=== PATIENT | female | born 1940 | race Caucasian/White ===

== ENCOUNTER → 2017-04-07 | Outpatient (CLI) | payer OTHER ==
[~2017-04-07] MED LIST: LPTUNK; LRT5 PO; METH4PAK4 PO; VALA1TAB PO
--- NOTE | 2017-04-07 12:49 | MAMMOGRAPHY REPORT ---
BILATERAL DIGITAL SCREENING MAMMOGRAM WITH CAD: 04/07/2017 CLINICAL HISTORY: Routine screening. Patient has no complaints. TECHNIQUE: Bilateral CC and MLO views were obtained. Current study was also evaluated with a Comput er Aided Detection (CAD) system. COMPARISON: Comparison is made to exams dated: 04/01/2016 mammogram, 03/29/2015 mammogram, 03/28/2014 m ammogram, 03/24/2013 mammogram, 03/23/2012 mammogram, and 03/20/2011 mammogram - [facility]. BREAST COMPOSITION: The tissue of both breasts is heterogeneously dense, which may obscure small ma sses. FINDINGS: There are stable asymmetries in the left breast. Scattered punctate microcalcifications. No developing mass, architectural distortion or cluster of suspicious microcalcifications is seen i n either breast. IMPRESSION: ACR BI-RADS CATEGORY 2: BENIGN There is no mammographic evidence of malignancy. A 1 year screening mammogram is recommended. The p atient will receive written notification of the results. Approximately 10% of breast cancers are not detected with mammography. A negative mammographic repor t should not delay biopsy if a clinically suggestive mass is present. Luiza Bass M.D. ay/:04/07/2017 09:01:08 Outside Machinist Apprentice: Eneida HAMILTON(R)(M), [facility] letter sent: Normal 1/2 BI-RADS Code: ACR BI-RADS Category 2: Benign
== END | disposition home or self-care (01) ==
LOC: C.MAMM 08:33
PROVIDERS: ATTEND Internal Medicine
DX: Z12.31 Encounter for screening mammogram for malignant neoplasm of breast (principal)

== ENCOUNTER → 2018-04-09 | Outpatient (CLI) | payer OTHER ==
--- NOTE | 2018-04-12 07:43 | MAMMOGRAPHY REPORT ---
BILATERAL DIGITAL SCREENING MAMMOGRAM TOMOSYNTHESIS WITH CAD: 04/09/2018 CLINICAL HISTORY: Routine screening. TECHNIQUE: Breast tomosynthesis in addition to standard 2D mammography was performed. Current study was also evaluated with a Computer Aided Detection (CAD) system. COMPARISON: Comparison is made to exams dated: 04/07/2017 mammogram, 04/01/2016 mammogram, 03/29/2015 mar[facility] mogram, 03/28/2014 mammogram, 03/24/2013 mammogram, and 03/23/2012 mammogram - [facility]. BREAST COMPOSITION: The tissue of both breasts is heterogeneously dense, which may obscure small mas ses. FINDINGS: No suspicious masses, calcifications, or areas of architectural distortion are noted in ei ther breast. There has been no significant interval change compared to prior exams. IMPRESSION: ACR BI-RADS CATEGORY 1: NEGATIVE There is no mammographic evidence of malignancy. A 1 year screening mammogram is recommended. The pa tient will receive written notification of the results. Approximately 10% of breast cancers are not detected with mammography. A negative mammographic report should not delay biopsy if a clinically suggestive mass is present. Faviola Aranda M.D. ah/:04/09/2018 08:23:13 Skull Chopper: Salomón HAMILTON(Janny)(M), [facility] letter sent: Normal 1/2 BI-RADS Code: ACR BI-RADS Category 1: Negative
== END | disposition home or self-care (01) ==
LOC: C.MAMM 07:58
PROVIDERS: ATTEND Internal Medicine
DX: Z12.31 Encounter for screening mammogram for malignant neoplasm of breast (principal)

== ENCOUNTER 2025-07-07 09:23 | Observation (INO) ==
--- NOTE | 2025-06-13 14:06 | PAT Medication Instructions ---
Medication Instructions Date of Service June 13, 2025 Home Medications Medication Instructions Recorded gabapentin 100 mg capsule 200 mg (2 x 100 mg) PO TID #180 05/25/25 [facility] Medication List: atorvastatin 20 mg tablet 20 mg PO HS biotin 5 mg tablet 5 mg PO QAM finasteride 5 mg tablet 2.5 mg PO QAM levothyroxine 50 mcg tablet 50 mcg PO QAM acetaminophen 650 mg tablet,extended release (Tylenol 8 Hour) 1,300 mg PO Q12H PRN Pain alendronate 70 mg tablet 70 mg PO WK aspirin 81 mg capsule 81 mg PO QAM losartan 25 mg tablet 25 mg PO QAM multivitamin 1 tab PO 3XWK gabapentin 100 mg capsule 200 mg (2 x 100 mg) PO TID meloxicam 15 mg tablet 15 mg PO QAM MEDICATION INSTRUCTIONS: Continue as directed alendronate 70 mg tablet 70 mg PO WK ASK your surgeon for instructions meloxicam 15 mg tablet 15 mg PO QAM ASK your prescriber and surgeon aspirin 81 mg capsule 81 mg PO QAM STOP taking 2 weeks before surgery biotin 5 mg tablet 5 mg PO QAM DO NOT take the morning of surgery losartan 25 mg tablet 25 mg PO QAM multivitamin 1 tab PO 3XWK Take morning of surgery With a small sip of water, OTHERWISE NOTHING TO EAT OR DRINK AFTER MIDNIGHT: finasteride 5 mg tablet 2.5 mg PO QAM levothyroxine 50 mcg tablet 50 mcg PO QAM gabapentin 100 mg capsule 200 mg (2 x 100 mg) PO TID acetaminophen 650 mg tablet,extended release (Tylenol 8 Hour) 1,300 mg PO Q12H PRN Pain Take evening before surgery atorvastatin 20 mg tablet 20 mg PO HS gabapentin 100 mg capsule 200 mg (2 x 100 mg) PO TID acetaminophen 650 mg tablet,extended release (Tylenol 8 Hour) 1,300 mg PO Q12H PRN Pain Other Notes If you have any questions please call us at [phone] or [phone] or [phone] or [phone]
--- NOTE | 2025-06-21 11:57 | Anesthesiology Consultation ---
Date of Service June 21, 2025 Assessment & Plan (1) Encounter for pre-operative examination: - Infectious disease screening: Per assessment on 06/21/25- No known recent infectious disease contacts or current infectious disease symptoms. - PCP visit (06/08/25): "Patient is intermediate or medium medical risk for listed procedure.." - Hx PONV: Patient requests preoperative antiemetic if possible Chart Review Chart Review: Acceptable Risk for Surgery and Patient seen in Pre Admission Testing Teaching & Discussion Pre-Anesthesia Teaching/Discussion Notes: Instructed NPO after midnight before surgery,except medications with 15 cc of water. Medication instructions provided according to the PAT guidelines. History Surgery Operation Date: 07/07/25 07:30 Proposed Procedures p L4-L5 Laminectomy - Deejay Cruz MD Height/Weight Height: 5 ft 5 in Weight: 66.4 kg Allergies Allergy/AdvReac Type Severity Reaction Status Date / Time Sulfa (Sulfonamide Allergy Mild Rash Verified 05/01/25 14:02 Antibiotics) Medications Home Medications Medication Instructions Recorded Confirmed Last Taken atorvastatin 20 mg tablet 20 mg PO HS 04/16/21 06/13/25 05/19/21 biotin 5 mg tablet 5 mg PO QAM 04/16/21 06/13/25 05/19/21 finasteride 5 mg tablet 2.5 mg PO QAM 04/16/21 06/13/25 05/19/21 levothyroxine 50 mcg tablet 50 mcg PO QAM 04/16/21 06/13/25 05/19/21 acetaminophen 650 mg 1,300 mg PO Q12H PRN Pain 08/18/24 06/13/25 Unknown tablet,extended release (Tylenol 8 Hour) alendronate 70 mg tablet 70 mg PO WK 08/18/24 06/13/25 Unknown aspirin 81 mg capsule 81 mg PO QAM 08/18/24 06/13/25 Unknown losartan 25 mg tablet 25 mg PO QAM 08/18/24 06/13/25 Unknown multivitamin 1 tab PO 3XWK 08/18/24 06/13/25 Unknown gabapentin 100 mg capsule 200 mg (2 x 100 mg) PO TID #180 05/25/25 06/13/25 Unknown caps meloxicam 15 mg tablet 15 mg PO QAM #30 tabs 06/19/25 Unknown Past Medical History Medical History (Updated 06/21/25 @ 12:32 by Razia Tucker) Arthritis Brain tumor (benign) Monitored by [facility] neurosurgery Brain MRI 06/2024: "Stable appearance of 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 No new intracranial pathology." Hx of migraines Hyperlipidemia Hypertension Hypothyroidism Mini stroke ~2020 No residual problems Spinal stenosis Exercise / Class Metabolic Activity II 4-5 Yardwork/Stairs/Walk up hill (one FS: No CP, no SOB) Past Family History Family History Other No family history of adverse response to anesthesia Past Surgical History Surgical History History of cataract surgery right/left History of colonoscopy History of hysterectomy History of tooth extraction Nausea and vomiting after administration of anesthetic agent + slow to wake up Past Anesthesia History No Family Hx of Anesthesia Complications and Other (Slow to wake) History of PONV History of PONV and Hx of Motion Sickness Social History Smoking Status: Never smoker Do You Dip or Chew Tobacco: No Hx Alcohol Use: Yes alcohol intake frequency: holidays/special occasions only Hx Substance Use: No substance use type: does not use Review of Systems Patient denies chest pain, shortness of breath, dyspnea on exertion, fever, chills, cough, wheezing, palpitations. Physical Exam Vital Signs BP 137/81 P 73 TEMP 98.0 SP02 95%RA RESP 18 Physical Significantly decreased cervical extension range of motion. Full TMJ range of motion. TMD > 3.5 finger breaths Mallampati Score III Dentition: intact, + crowns Lungs: clear throughout to auscultation Cardiac: regular rate and rhythm, no murmurs noted Spine: normal Carotid arteries: negative bruit Extremities: no LE edema Lab Results Anesthesia Preop Results Results Anesthesia Widget: WBC 10.21 K/ul (4.8-10.8) 06/21/25 Hgb 12.8 g/dl (12.0-16.0) 06/21/25 Hct 37.7 % (37.0-47.0) 06/21/25 Plt 305 K/uL (130-400) 06/21/25 PTT 27 Seconds (21-31) 06/21/25 HA1c 6.1 % (4.5-5.6) H 06/21/25 Blood Type A Positive 06/21/25 Antibody Screen NEGATIVE 06/21/25 Testing Laboratory Results 06/08/25 SODIUM 135 POTASSIUM 4.5 CHLORIDE 97 CO2 24 BUN 16 CREATININE 0.8 GLUCOSE 93 PT 13.1 INR 1.0 Electrocardiogram Date: 06/08/25 NSR at 67bpm. Septal infarct, age undetermined. No significant change compared to 07/16/2023 per human resources operations specialist comparison. Chest X-Ray Date: 06/08/25 Findings: + NAD Echocardiogram Date: 11/03/22 LVEF 55%. LV wall motion normal. Mildly increased cLV wall thickness. Mild mitral annular calcification. Trace MR/AR. Grade I DD. Other Testing Brain MRI Date: 07/05/24 Impression: Stable appearance of 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 No new intracranial pathology.
[2025-07-07] MEDS ORDERED: PROMETHAZINE HCL 6.25 MG in SODIUM CHLORIDE 0.9% 50 ML IV PRN (09:54)
[2025-07-07] MEDS ORDERED: HYDROmorphone INJ 1 MG/ML SYRINGE IV PRN ×2 (09:54→17:00)
[2025-07-07] MEDS ORDERED: FLUMAZENIL 0.1 MG/1 ML 10 ML VIAL IV PRN (09:54)
[2025-07-07] MEDS ORDERED: ONDANSETRON INJ 2 MG/ML 2 ML VIAL IV PRN ×2 (09:54→17:00)
[2025-07-07] MEDS ORDERED: ATROPINE SULFATE 0.1 MG/ML 10ML SYR IV PRN (09:54)
[2025-07-07] MEDS ORDERED: NALOXONE HCL 0.4 MG/1 ML VIAL/CARP IV PRN ×2 (09:54→17:00)
[2025-07-07] MEDS: LR 15ML/HR IV SCH (09:56)
[2025-07-07] MEDS: ACETAMINOPHEN 500 MG TAB PO SCH ×2 (10:03→21:20)
[2025-07-07] MEDS: LR 60ML/HR IV SCH (10:04)
[2025-07-07] MEDS ORDERED: ONDANSETRON INJ 2 MG/ML 2 ML VIAL ONE (10:35)
[2025-07-07] MEDS ORDERED: LIDOCAINE 2% 2 ML VIAL/AMP(20MG/ML) INFIL ONE (10:35)
[2025-07-07] MEDS ORDERED: PROPOFOL IV EMULSION 10 MG/ML 20 ML VIAL IV ONE ×3 (10:35→14:42)
[2025-07-07] MEDS ORDERED: DEXAMETHASONE SOD INJ 4 MG/ML VIAL ONE ×2 (10:35)
[2025-07-07] MEDS ORDERED: ROCURONIUM BROMIDE 10 MG/ML 5 ML VIAL IV ONE (10:48)
--- NOTE | 2025-07-07 12:55 | History & Physical Report ---
Date of Service July 07, 2025 Assessment & Plan (1) Lumbar radiculopathy: (2) Lumbar spondylosis: (3) Neuroforaminal stenosis of lumbar spine: (4) Spinal stenosis of lumbar region with neurogenic claudication: (5) Incontinence: Plan Assessment: 84-year-old female with lumbar spondylosis, lumbar stenosis with neurogenic claudication, lumbar radiculopathy which is failed conservative care. Plan: A long discussion with the patient and her family members today regarding surgical intervention. She is no longer getting any benefit from the epidural injections so I feel it is reasonable to discuss surgical treatment options. She does not report any significant health conditions otherwise, we discussed the possibility of an L4-5 decompressive laminectomy bilaterally. Did not see any indication for fusion at this time, we did discuss the fact that she does have a mild anterior listhesis at L4-5 however this appears stable on all of her imaging and I do not feel she would need a fusion at this time, we did discuss the possibility of worsening instability after decompression and possible need for future surgery including fusion. History of Present Illness Chief Complaint: Back/leg pain Primary Care Provider: Cindy Wayne MD HPI: Patient is a very pleasant 84-year-old female who comes in today for evaluation of low back pain radiating into the bilateral lower extremities left worse than right. Reports that the pain started in March 2024, she has had extensive nonoperative treatment in the form of physical therapy, epidural injections as well as medication management. She reports that the first epidural injection worked well however the subsequent injections either did not work or lasted a very short duration. She has seen urology for some urinary incontinence issues however today reports that she is not having any further bladder issues. She does describe pain radiating into the bilateral lower ex tremities demonstrates that this pain on the left following an L5 dermatomal pattern into the upper gluteal region lateral thigh and lateral left lower extremity. She does not report any fixed strength deficits. She also reports that she has pain with prolonged standing, this pain is improved by bending forward, often bends forward on a shopping cart for ambulation to relieve the symptoms of neurogenic claudication. Allergies Allergy/AdvReac Type Severity Reaction Status Date / Time Sulfa (Sulfonamide Allergy Mild Rash Verified 07/07/25 09:42 Antibiotics) Home Medications Medication Instructions Recorded Confirmed Type atorvastatin 20 mg tablet 20 mg PO HS 04/16/21 07/07/25 History biotin 5 mg tablet 5 mg PO QAM 04/16/21 07/07/25 History finasteride 5 mg tablet 2.5 mg PO QAM 04/16/21 07/07/25 History levothyroxine 50 mcg tablet 50 mcg PO QAM 04/16/21 07/07/25 History acetaminophen 650 mg 1,300 mg PO Q12H PRN Pain 08/18/24 07/07/25 History tablet,extended release (Tylenol 8 Hour) alendronate 70 mg tablet 70 mg PO WK 08/18/24 07/07/25 History aspirin 81 mg capsule 81 mg PO QAM 08/18/24 07/07/25 History losartan 25 mg tablet 25 mg PO QAM 08/18/24 07/07/25 History multivitamin 1 tab PO 3XWK 08/18/24 07/07/25 History meloxicam 15 mg tablet 15 mg PO QAM #30 tabs 06/19/25 07/07/25 Rx gabapentin 100 mg capsule 200 mg (2 x 100 mg) PO TID #180 07/03/25 07/07/25 Rx caps Past Med/Surg History Problem List Encounter for pre-operative examination Lumbar radiculopathy Lumbar spondylosis Sacroiliac joint pain Neuroforaminal stenosis of lumbar spine Spinal stenosis of lumbar region with neurogenic claudication Incontinence Urgency of urination Dysuria Medical History Spinal stenosis Brain tumor (benign) Monitored by [facility] neurosurgery Brain MRI 06/2024: "Stable appearance of 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 No new intracranial pathology." Mini stroke ~2020 No residual problems Hypertension Arthritis Hypothyroidism Hx of migraines Hyperlipidemia Surgical History History of cataract surgery right/left History of hysterectomy History of colonoscopy History of tooth extraction Nausea and vomiting after administration of anesthetic agent + slow to wake up Family History Other No family history of adverse response to anesthesia Social History Smoking Status: Never smoker Second Hand Exposure: No; Do You Dip or Chew Tobacco: No; Hx Alcohol Use: Yes Hx Substance Use: No Preferred Language: Czech Communication Ability: Effective Visual Impairment: No Limitations Hearing Ability: Normal Eyedotter Required: No Beliefs That Will Affect Care: None marital status: Current Living Situation: Spouse current occupational status: retired current occupation: retired personal secretary Feels Safe at Home: Yes Safety Concerns: Feels Safe At This Time Assistive Devices: Cane and Glasses Assistive Devices Comment: reading glasses Review of Systems All systems reviewed & are unremarkable except as noted in HPI & below. Physical Exam Physical exam: Constitutional: Well developed, appears stated age Psych: patient is coherent and answers questions appropriately, normal affect Eye: Normal gaze, no redness to sclera, pupils round and equal Pulm: Normal respiratory effort, no wheezing Cardiovascular: no significant peripheral edema, palpable DP/PT pulses Skin shows no rashes, lesions No midline or paraspinal tenderness with palpation over the lumbar spine, no stepoffs Motor strength is 5/5 in bilateral hip flexors, quadriceps, tibialis anterior, extensor hallucis longus, and gastroc/soleus complex Sensation intact to light touch in the L2-S1 dermatomes bilaterally with the exception of paresthesias left L5 dermatome Results & Data Results & Data Laboratory Results . Diagnostic Findings . PG Care Time/CCT Total # of Minutes Spent Total Time Spent with Patient: Total time spent is greater than 50% in coordination of care (as documented) at patient's floor/unit and/or counseling patient: Coding Level of Care Code None Diagnoses Lumbar radiculopathy M54.16 Lumbar spondylosis M47.816 Neuroforaminal stenosis of lumbar spine M48.061 Spinal stenosis of lumbar region with neurogenic claudication M48.062 Urinary incontinence, unspecified type R32 Incontinence type: urinary Urinary Incontinence type: unspecified incontinence (5) Incontinence Incontinence type: urinary Urinary Incontinence type: unspecified incontinence Qualified Code(s): R32 - Unspecified urinary incontinence
[2025-07-07] MEDS ORDERED: ePHEDrine sulfate 50 MG/5 ML SYR ONE (14:54)
[2025-07-07] MEDS ORDERED: PHENYLEPHRINE HCL 10 MG/ML VIAL ONE (15:04)
[2025-07-07] MEDS ORDERED: METOCLOPRAMIDE HCL INJ 5 MG/ML 2 ML VIAL ONE (15:15)
[2025-07-07] MEDS: GELATIN SPONGE SZ 100 ONE (15:17)
[2025-07-07] MEDS ORDERED: PHENYLEPHRINE 100MCG/ML 5ML SYR ONE (15:17)
[2025-07-07] MEDS: VANCOMYCIN HCL 1000MG/20ML VIAL ONE (15:17)
[2025-07-07] MEDS ORDERED: NEOSTIGMINE METHYLSULFATE 1 MG/ML 10ML VIAL ONE (15:18)
[2025-07-07] MEDS ORDERED: GLYCOPYRROLATE 0.2 MG/ML VIAL ONE (15:18)
[2025-07-07] MEDS: BUPIVACAINE 0.5 % 5 MG/1 ML MPF 30ML VIAL ONE (15:20)
[2025-07-07] MEDS: FLOSEAL HEMOSTATIC MATRIX 10ML TOP ONE (15:20)
[2025-07-07] MEDS ORDERED: SUGAMMADEX SODIUM 200 MG/2 ML VIAL IV ONE (15:45)
--- NOTE | 2025-07-07 15:47 | Operative Report ---
PG Post Operative Report Pre & Post Diagnosis Operation Date: 07/07/25 10:20 Pre-Op Diagnosis: Lumbar Spondylosis, Lumbar Radiculopathy Post-Op Diagnosis: Lumbar Spondylosis, Lumbar Radiculopathy I identified the patient and participated in the time-out.: Yes Procedure Operation Date: 07/07/25 10:20 Actual Procedures p L4-L5 Laminectomy(91911) - Deejay Cruz MD Surgeon Deejay Cruz MD Cable Splicing Technician Mega Smith Estimated Blood Loss 20 Findings Consistent with Post-Op Diagnosis Specimens None Drains None Anesthesia Type General Complications none Disposition Disposition: Recovery Room Indications Patient was met in the operative setting, she had an intractable radiculopathy that had failed conservative management. We discussed risks and benefits of lumbar decompression at L4-5 which included but was not limited to nerve injury, blood clots, dural tear, no relief of symptoms, possible worsening instability of her spondylolisthesis, infection. After discussion of the risks and benefits the patient and her family elected to proceed. Description of Procedure Patient was brought to the operating room where general anesthesia was induced. She was placed in the prone position on the Emir spine table with Cirilo frame all bony prominences were padded. She was prepped and draped in the usual sterile fashion. Verbal timeout was performed identify the patient by name date of and verifying the correct procedure. All were in agreement. I used preoperative fluoroscopy to one of the approximate a skin incision over the L4 spinous process. Skin was incised with 10 blade scalpel, Bovie electrocautery was used to dissect down to the lumbodorsal fascia which was split midline. I then carried out the subperiosteal dissection to expose the L4 lamina out to the facet joint capsules. Facet capsules were preserved. I then removed the inferior aspect of the L4 spinous process retaining her of the ligamentous attachment at L3-4. Lamina was thinned with a high-speed bur. I then removed the ligamentum flavum between L4 and L5 which was severely hypertrophied. There is also considerable facet hypertrophy creating lateral recess stenosis. Medial facetectomy was performed with a 4 Kerrison rongeur using the Clark elevator to protect the dura. After medial facetectomy there was excellent decompression of the L4-5 interspace as well as the central thecal sac and bilateral traversing L5 nerve roots. Wound was inspected and hemostasis was obtained. Wound was then thoroughly irrigated. The fascia was closed with strata fix suture, interrupted Vicryl and arelis were used to close the skin. Sterile dressing was applied and patient was taken to the PACU in stable condition. I attest to the content of the Intraoperative Record and any orders documented therein. Any exceptions are noted below.
--- NOTE | 2025-07-07 16:34 | Anesthesiology Progress Note ---
Date of Service July 07, 2025 Anesthesia Post Procedure Vital Signs Vital Signs: Temp Pulse Pulse Resp BP Pulse Ox O2 Del Method 07/07/25 16:25 36.4 C L 62 18 155/77 H 100 Room Air 07/07/25 16:15 69 20 153/73 H 100 Oxymask 07/07/25 16:05 77 18 155/71 H 100 Oxymask 07/07/25 15:56 36.6 C 80 14 161/72 H 100 Oxymask 07/07/25 10:09 179/74 H 07/07/25 09:47 36.4 C L 75 20 188/78 H 97 Room Air O2 Flow Rate 07/07/25 16:25 0 07/07/25 16:15 4 07/07/25 16:05 8 07/07/25 15:56 8 07/07/25 10:09 07/07/25 09:47 Pain Intensity Lower Back: Pain Intensity: 4 Transfer of Care Handoff Completed per policy Notes Mental Status: alert / awake / arousable Patient Amnestic to Procedure: Yes Nausea / Vomiting: adequately controlled Pain: adequately controlled Airway Patency, RR, SpO2: stable & adequate BP & HR: stable & adequate Hydration State: stable & adequate Anesthetic Complications: no major complications apparent
[2025-07-07] MEDS ORDERED: PROMETHAZINE 12.5 MG/50.5 ML BAG IV PRN (17:00)
[2025-07-07] MEDS ORDERED: SOD PHOSPHATE/SOD BIPHOSPHATE ENEMA 132 ML BTL PR PRN (17:00)
[2025-07-07] MEDS ORDERED: LORazepam 0.5 MG TAB PO PRN (17:00)
[2025-07-07] MEDS ORDERED: METOCLOPRAMIDE HCL INJ 5 MG/ML 2 ML VIAL IV PRN (17:00)
[2025-07-07] MEDS ORDERED: ONDANSETRON 4 MG OD TAB PO PRN (17:00)
[2025-07-07] MEDS ORDERED: FAMOTIDINE 20 MG TAB PO PRN (17:00)
[2025-07-07] MEDS ORDERED: ALUMINUM/MAGNESIUM SUSP 30 ML UDC PO PRN (17:00)
[2025-07-07] MEDS ORDERED: ACETAMINOPHEN 1,000 MG/100 ML VIAL IV PRN (17:00)
[2025-07-07] MEDS ORDERED: MAGNESIUM HYDROXIDE SUSP 30 ML UDC PO PRN (17:00)
[2025-07-07] MEDS ORDERED: diphenhydrAMINE Capsule 25 MG CAP PO PRN (17:00)
[2025-07-07] MEDS ORDERED: DO NOT ADMINISTER PNEUMOCOCCAL VACCINE PRN (17:00)
[2025-07-07] MEDS ORDERED: DO NOT ADMINISTER FLU VACCINE PRN (17:00)
[2025-07-07] MEDS: BUPIVACAINE/EPINEPHRINE 0.5% MPF 1:200,000 30 ML VIAL ONE (17:02)
[2025-07-07] MEDS: KETOROLAC TROMETHAMINE 15 MG/ML VIAL IV SCH (17:21)
[2025-07-07] MEDS: LACTATED RINGER'S 1,000 ML IV SCH (17:21)
[2025-07-07] MEDS: ACETAMINOPHEN 500 MG TAB PO PRN (18:31)
--- NOTE | 2025-07-07 19:41 | Consultation ---
Date of Consultation July 07, 2025 Assessment & Plan (1) Lumbar radiculopathy: (2) Lumbar spondylosis: (3) Spinal stenosis of lumbar region with neurogenic claudication: Plan Ms. Abbott is amn 84 yearold woman with history of HTN, CKDII-III, prediabetes, HLD, hypothyroidism, lumbar spondylosis, lumbar stenosis with neurogenic claudication, lumbar radiculopathy which is failed conservative care, who is now s/p L4-L5 laminectomy. #lumbar stenosis with neurogenic claudication s/p laminectomy 07/[address] Cruz analgesia prn per primary team DVT ppx per primary team Trend CBC in am, baseline 13-14 preoperatively PT/OT as able scheduled bowel regimen #CKDII-III baseline 0.8-1.0 trend bmp in am #HTN pressures stable postoperatively continue losartan 25mg #HLD continue statin and asa #Hypothyroidism continue synthroid #Osteoporosis continue alendronate Thank you for this consultation. We will follow the patient with you during their hospital stay. You can reach a member of the [facility] Hospitalist Team 22/06 via [employer] History of Present Illness Requesting Physician: Nancy Reason for Consultation: med management Attending Physician: Deejay Cruz MD History of Present Illness Ms. Abbott is amn 84 yearold woman with history of HTN, CKDIII, prediabetes, HLD, hypothyroidism, lumbar spondylosis, lumbar stenosis with neurogenic claudication, lumbar radiculopathy which is failed conservative care, who is now s/p L4-L5 laminectomy. Patient states that she is experiencing mild post operative discomfort, but the LLE radiculopathy she routinely experiences is not present. She denies chest pain, palpitations, shortness of breath or any other acute concerns. She states that prior to her procedure this morning and outside of the LLE pain, she had no other concerns. She denies tobacco, endorses occasional etoh, and denies illicits. Vital signs have remain stable post operatively with pressures in 150-180s SBP, HR 60-80s, afebrile, and saturating well on room air. Allergies Allergy/AdvReac Type Severity Reaction Status Date / Time Sulfa (Sulfonamide Allergy Mild Rash Verified 07/07/25 09:42 Antibiotics) Home Medications Medication Instructions Recorded Confirmed Type atorvastatin 20 mg tablet 20 mg PO HS 04/16/21 07/07/25 History biotin 5 mg tablet 5 mg PO QAM 04/16/21 07/07/25 History finasteride 5 mg tablet 2.5 mg PO QAM 04/16/21 07/07/25 History levothyroxine 50 mcg tablet 50 mcg PO QAM 04/16/21 07/07/25 History acetaminophen 650 mg 1,300 mg PO Q12H PRN Pain 08/18/24 07/07/25 History tablet,extended release (Tylenol 8 Hour) alendronate 70 mg tablet 70 mg PO WK 08/18/24 07/07/25 History aspirin 81 mg capsule 81 mg PO QAM 08/18/24 07/07/25 History losartan 25 mg tablet 25 mg PO QAM 08/18/24 07/07/25 History multivitamin 1 tab PO 3XWK 08/18/24 07/07/25 History meloxicam 15 mg tablet 15 mg PO QAM #30 tabs 06/19/25 07/07/25 Rx gabapentin 100 mg capsule 200 mg (2 x 100 mg) PO TID #180 07/03/25 07/07/25 Rx caps Patient History Medical History Spinal stenosis Brain tumor (benign) Monitored by [facility] neurosurgery Brain MRI 06/2024: "Stable appearance of 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 No new intracranial pathology." Mini stroke ~2020 No residual problems Hypertension Arthritis Hypothyroidism Hx of migraines Hyperlipidemia Surgical History History of cataract surgery right/left History of hysterectomy History of colonoscopy History of tooth extraction Nausea and vomiting after administration of anesthetic agent + slow to wake up Family History Other No family history of adverse response to anesthesia Social History Smoking Status: Never smoker Second Hand Exposure: No; Do You Dip or Chew Tobacco: No; Hx Alcohol Use: Yes Hx Substance Use: No Preferred Language: Scottish Communication Ability: Effective Visual Impairment: No Limitations Hearing Ability: Normal Edge Burnisher Required: No Beliefs That Will Affect Care: None marital status: Current Living Situation: Spouse current occupational status: retired current occupation: retired secretary book keeper Feels Safe at Home: Yes Safety Concerns: Feels Safe At This Time Assistive Devices: Cane and Glasses Assistive Devices Comment: reading glasses Review of Systems Review of Systems: Constitutional: (-) fever/chills, (-) recent loss of weight, (-) appetite changes, (-) night sweats. Head: (-) headache, (-) dizziness. Eye: (-) blurring of vision, (-) double vision, (-) redness. Ear: (-) hearing loss, (-) discharge, (-) vertigo Nose: (-) discharge, (-) bleeding, (-) congestion, (-) post nasal drip. Throat: (-) sore throat, (-) hoarseness of voice, (-) odynophagia. Cardiovascular: (-) chest pain, (-) palpitations, (-) syncope, (-) orthopnea, (- ) PND, (-) leg swelling. Respiratory: (-) shortness of breath, (-) cough, (-) wheezing, (-) hemoptysis. Neuro: (-) weakness in extremities, (-) numbness, (-) tingling, (-) tremor. Gastrointestinal: (-) belly pain, (-) belly distension, (-) nausea, (-) vomiting, (-) diarrhea, (-) constipation, Genitourinary: (-) hematuria, (-) dysuria, (-) polyuria, (-) hesitancy, (-) frequency, (-) urinary incontinence. Musculoskeletal: (-) myalgia, (-) arthralgia. Skin: (-) rashes. Endocrine: (-) heat/cold intolerance. Psychiatry: (-) depression, (-) hallucination. Physical Exam Physical Exam: GENERAL APPEARANCE: AxOx3, tired appearing female no acute distress. HEENT: NC, AT. MMM. EOMI, clear conjunctiva, oropharynx clear. NECK: Supple without lymphadenopathy. No stiffness or restricted ROM. HEART: Normal rate and regular rhythm, normal S1/S1, no m/r/g LUNGS: CTAB, moving air well. No crackles or wheezes are heard. ABDOMEN: Soft, nontender, nondistended with good bowel sounds heard. BACK: No CVAT, no obvious deformity.bandage in place, ALEX drain with sanguinous output EXTREMITIES: Without cyanosis, clubbing or edema. NEUROLOGICAL: Grossly nonfocal. Alert and oriented, moving all 4 extremities. CN not formally tested but appear grossly intact Skin: Warm and dry without any rash. Results & Data Vital Signs (Past 12 Hours) Vital Signs Temp Pulse Pulse Pulse Pulse Resp BP 07/07/25 18:50 36.3 C L 76 18 153/79 H 07/07/25 17:52 36.3 C L 70 16 148/71 H 07/07/25 17:20 36.3 C L 68 16 165/69 H 07/07/25 16:57 36.3 C L 71 16 07/07/25 16:35 70 13 07/07/25 16:25 36.4 C L 62 18 07/07/25 16:15 69 20 07/07/25 16:05 77 18 07/07/25 15:56 36.6 C 80 14 07/07/25 10:09 07/07/25 09:47 36.4 C L 75 20 BP Pulse Ox O2 Del Method O2 Flow Rate 07/07/25 18:50 95 Room Air 07/07/25 17:52 96 Room Air 07/07/25 17:20 96 Room Air 07/07/25 16:57 159/71 H 97 Room Air 07/07/25 16:35 164/75 H 97 Room Air 0 07/07/25 16:25 155/77 H 100 Room Air 0 07/07/25 16:15 153/73 H 100 Oxymask 4 07/07/25 16:05 155/71 H 100 Oxymask 8 07/07/25 15:56 161/72 H 100 Oxymask 8 07/07/25 10:09 179/74 H 07/07/25 09:47 188/78 H 97 Room Air Medications Administered Home Medications Medication Instructions Recorded Confirmed Last Taken atorvastatin 20 mg tablet 20 mg PO 04/16/21 07/07/25 07/06/25 21:00 biotin 5 mg tablet 5 mg PO QAM 04/16/21 07/07/25 06/23/25 finasteride 5 mg tablet 2.5 mg PO QAM 04/16/21 07/07/25 07/06/25 08:00 levothyroxine 50 mcg tablet 50 mcg PO QAM 04/16/21 07/07/25 07/06/25 08:00 acetaminophen 650 mg 1,300 mg PO Q12H PRN Pain 08/18/24 07/07/25 07/06/25 21:00 tablet,extended release (Tylenol 8 Hour) alendronate 70 mg tablet 70 mg PO WK 08/18/24 07/07/25 07/02/25 aspirin 81 mg capsule 81 mg PO QAM 08/18/24 07/07/25 07/06/25 08:00 losartan 25 mg tablet 25 mg PO QAM 08/18/24 07/07/25 07/06/25 08:00 multivitamin 1 tab PO 3XWK 08/18/24 07/07/25 07/06/25 08:00 meloxicam 15 mg tablet 15 mg PO QAM #30 tabs 06/19/25 07/07/25 06/30/25 gabapentin 100 mg capsule 200 mg (2 x 100 mg) PO TID #180 07/03/25 07/07/25 07/06/25 21:00 caps Active Medications Generic Name Dose Route Start Last Admin Trade Name Freq PRN Reason Stop Dose Admin Acetaminophen 1,000 mg 07/07/25 17:00 07/07/25 18:31 Acetaminophen 500 Mg Tab PO 08/06/25 16:59 1,000 mg Q8H PRN Administration MILD Pain (1,2,3) & Pre PT Lactated Ringer's 1,000 mls @ 60 mls/hr 07/07/25 06:00 07/07/25 10:04 Lr IV 07/07/25 22:39 Not Given .[id number] LIZ Lactated Ringer's 1,000 mls @ 15 mls/hr 07/07/25 06:00 07/07/25 14:10 Lr IV 07/08/25 05:59 Infused .Q24H LIZ Infusion Lactated Ringer's 1,000 mls @ 75 mls/hr 07/07/25 17:00 07/07/25 17:21 Lr IV 07/08/25 08:00 75 mls/hr .[id number] LIZ Administration Ketorolac Tromethamine 15 mg 07/07/25 17:00 07/07/25 17:21 Ketorolac Tromethamine 15 Mg/Ml Vial IV 07/08/25 11:01 15 mg Q6H LIZ Administration
[2025-07-07] MEDS: DOCUSATE SODIUM/SENNA 50/8.6MG TAB PO SCH (20:20)
[2025-07-07] MEDS: ATORVASTATIN 20 MG TAB PO SCH (20:21)
[2025-07-07] MEDS: GABAPENTIN 100 MG CAP PO SCH (20:21)
[2025-07-08] MEDS: POLYETHYLENE (MIRALAX) 17 GM PACK PO SCH (05:35)
[2025-07-08] MEDS: LEVOTHYROXINE SODIUM 50 MCG TABLET PO SCH (05:36)
[2025-07-08 06:43] LABS: Hematocrit (blood only) 36.0 % (37.0-47.0); Hemoglobin 12.5 g/dl (12.0-16.0); Mean Corpuscular Hemoglobin 31.8 pg (25.0-34.0); Mean Corpuscular Volume 91.6 fL (80.0-100.0); Platelet Count 285 K/uL (130-400); RDW Standard Deviation 41.9 fL (36.4-46.3); Red Blood Count 3.93 M/uL (4.20-5.40); White Blood Count 19.53 K/ul (4.8-10.8)
[2025-07-08 07:22] LABS: Anion Gap 11.0 (3-11); Blood Urea Nitrogen 16.0 mg/dl (6-23); Calcium 8.8 mg/dl (8.6-10.3); Carbon Dioxide 24.0 mmol/L (21-32); Chloride 97.0 mmol/L (98-107); Creatinine Clr Calc Pharmacy 40.7 ml/min; Glucose 162.0 mg/dl (70-99(Fasting)); Magnesium 1.9 mg/dl (1.7-2.4); Potassium 4.3 mmol/L (3.5-5.1); Sodium 132.0 mmol/L (136-145)
[2025-07-08] MEDS: FINASTERIDE 5 MG TAB PO SCH (08:16)
[2025-07-08] MEDS: ASPIRIN 81 MG ECTAB PO SCH (08:16)
[2025-07-08] MEDS: MULTIVITAMIN TAB PO SCH (08:16)
[2025-07-08] MEDS ORDERED: LOSARTAN POTASSIUM 25 MG TAB PO SCH (09:00)
--- NOTE | 2025-07-08 09:18 | XRay Report ---
XR lumbar spine 2-3V HISTORY: 84 years-old Female post-op spine surgery chronic low back pain COMPARISON: MR 05/17/2025 TECHNIQUE: 2 views of the lumbar spine FINDINGS: 27 degrees levoscoliosis. Demineralized appearance of the bones. Moderate multilevel disc space narro wing, spondylotic spurring and facet arthrosis without acute fracture, subluxation or endplate erosio n. Posterior and arelis with soft tissue swelling and deep tissue air. No unexpected opaque foreign bodies are seen. Scattered bowel air-fluid levels with nonobstructive bowel gas pattern. IMPRESSION: 1. No acute osseous abnormality. 2. Midline posterior skin arelis with soft tissue swelling and likely expected deep tissue air. ACT 112: Negative or not required by law. The above report was generated using voice recognition software. It may contain grammatical, syntax o r spelling errors. Electronically signed by: Antoine Villeda M.D. 07/08/2025 9:17 AM
--- NOTE | 2025-07-08 11:09 | Orthopedic Progress Note ---
Date of Service July 08, 2025 Assessment & Plan (1) Lumbar radiculopathy: (2) Lumbar spondylosis: (3) Spinal stenosis of lumbar region with neurogenic claudication: Plan Activity as tolerated mobilize with PT will work on pain control today, slow to mobilize Likely dc home tomorrow Subjective s/p lumbar decompression, pain controlled. Pre op radicular pain has resolved, making some progress with pt/ot Review of Systems All systems reviewed & are unremarkable except as noted in HPI & below. Physical Exam 5/5 strength L2-S1 myotomes SILT L2-S1 dermatomes dressing intact Results & Data Results & Data Laboratory Results . Diagnostic Findings . PG Care Time/CCT Total # of Minutes Spent Total Time Spent with Patient: Total time spent is greater than 50% in coordination of care (as documented) at patient's floor/unit and/or counseling patient: Coding Level of Care Code 75171 Post Operative Follow-Up Diagnoses Lumbar radiculopathy M54.16 Lumbar spondylosis M47.816 Spinal stenosis of lumbar region with neurogenic claudication M48.062
--- NOTE | 2025-07-08 11:13 | Discharge Summary ---
Date of Service July 08, 2025 Admission HPI (Per Admitting) HPI: Patient is a very pleasant 84-year-old female who comes in today for evaluation of low back pain radiating into the bilateral lower extremities left worse than right. Reports that the pain started in March 2024, she has had extensive nonoperative treatment in the form of physical therapy, epidural injections as well as medication management. She reports that the first epidural injection worked well however the subsequent injections either did not work or lasted a very short duration. She has seen urology for some urinary incontinence issues however today reports that she is not having any further bladder issues. She does describe pain radiating into the bilateral lower extremities demonstrates that this pain on the left following an L5 dermatomal pattern into the upper gluteal region lateral thigh and lateral left lower extremity. She does not report any fixed strength deficits. She also reports that she has pain with prolonged standing, this pain is improved by bending forward, often bends forward on a shopping cart for ambulation to relieve the symptoms of neurogenic claudication. Admission Exam (Per Admitting) Physical exam: Constitutional: Well developed, appears stated age Psych: patient is coherent and answers questions appropriately, normal affect Eye: Normal gaze, no redness to sclera, pupils round and equal Pulm: Normal respiratory effort, no wheezing Cardiovascular: no significant peripheral edema, palpable DP/PT pulses Skin shows no rashes, lesions No midline or paraspinal tenderness with palpation over the lumbar spine, no stepoffs Motor strength is 5/5 in bilateral hip flexors, quadriceps, tibialis anterior, extensor hallucis longus, and gastroc/soleus complex Sensation intact to light touch in the L2-S1 dermatomes bilaterally with the exception of paresthesias left L5 dermatome Principal Diagnosis Same as "Discharge Diagnosis" noted below under Discharge Instructions. Discharge Exam 5/5 strength L2-S1 myotomes SILT L2-S1 dermatomes dressing intact Discharge Data Consultations 07/07/25 17:00 Consult Hospitalist Routine Procedures Performed Operation Date: 07/07/25 10:20 Actual Procedures p L4-L5 Laminectomy(Not Applicable) - Deejay Cruz MD Ordered Studies 07/07/25 10:20 FL spine 1V any level Routine Hospital Course (1) S/P lumbar laminectomy: (2) Lumbar radiculopathy: (3) Lumbar spondylosis: Plan Patient admitted post op for pain control and mobilization after decompression of lumbar spine. She worked with PT, returned to baseline bladder function, had good relief of PT. Required extra day given her comorbidities to maximize her pain control and mobility with PT. Tolerated PO diet, no need for transfusion. PG Care Time/CCT Total # of Minutes Spent Total Time Spent with Patient: Total time spent is greater than 50% in coordination of care (as documented) at patient's floor/unit and/or counseling patient: Discharge Plan Discharge Items Reason For Visit: Lumbar Spondylosis, Lumbar Radiculopathy Discharge Diagnosis: s/p L4-5 decompressive laminectomy Follow-up/Referrals: Cindy Wayne MD [Primary Care Provider] - Deejay Cruz MD [Surgeon] - (07/20/25 @ 13:30) Addtl Attending Provider Instructions: Instructions for Non-Fusion Spine Surgery YOU WILL BE PROVIDED WITH A PRESCRIPTION STRENGTH ANTI-INFLAMMATORY MEDICATION. THIS WILL BE THE BEST PAIN MEDICATION FOR THE TYPE OF PAIN YOU WILL EXPERIENCE. DO NOT TAKE ANY HERBAL SUPPLEMENTS MEDICATIONS: Toradol or other prescription non-steroidal anti-inflammatory drugs (NSAIDs): take for 3 days post op for pain control, as long as you do not have a contraindication for NSAIDs from your primary care physician. Oxycodone, Percocet, or Hydrocodone For breakthrough pain. Cyclobenzaprine (Flexeril), Tizanide (Zanaflex), or Methocarbamol (Robaxin) For muscle spasms. Senna-s and Miralax Senna-S twice daily, 17g packet of Miralax with water once daily while taking narcotics. These medications prevent constipation caused by the pain medications. Ondansetron (Zofran) For nausea Cephalexin (Keflex) or Sulfamethoxazole/trimethoprim (Bactrim). Antibiotic. You are given IV antibiotics while in the hospital; you may or may not be given a prescription for home; this will be decided after surgery. Your pre-surgery prescription medications With the exception of anti- inflammatory medications, blood thinners (Coumadin, Plavix, Eliquis, Pradaxa, etc}, or narcotic pain medications, you may resume your home medications. For the above medications, you will be given specific instructions. ACTIVITIES: Walking Walking is mandatory. You need to walk at least once every hour while awake. Walking will help prevent blood clots in your legs and help prevent spasms in your back. Bending/twisting It is safe to gently bend, roll over, sit up, lie on your back and do other normal activities. You may sleep in any position that is comfortable. Avoid athletic activities until further notice. Lifting Do not lift more than 10 lbs until further notice. Driving You may drive when you are no longer taking narcotic pain medications, can safely operate the brake/gas/clutch pedals, and can move your head/neck for visibility. Tobacco All tobacco products are strictly prohibited after surgery. Any use will dramatically increase your risk of complications. This includes vapor cigarettes, marijuana, nicotine patches and gums. Bracing/Cervical Collar Not required; if you are provided a soft collar it is for comfort and may be worn as desired. SURGICAL DRESSING Initial operative dressing is to stay on for 2 days; you may change if it becomes saturated. From then on, change the dressing daily with dry gauze and paper tape. Continue to change dressing until there is no discharge on the dressing. Once there is no discharge on the dressing, you may leave the incision open to air and make sure to keep it out of the sun. For supplies, stop by any local pharmacy. Any type of gauze dressing is acceptable. Do not put any ointments on the wound. SHOWERING You may shower 48 hours after your surgery. Cover the incision with Saran Wrap and tape the edges to prevent water from contacting the incision. If water contacts the incision, pat dry. No baths or submerging the incision until seen in the clinic at follow up appointment. QUESTIONS Please contact the office with questions or concerns: [phone] If outside normal business hours, you will be connected with the on-call physician. Medications and DC Order Prescriptions: No Action losartan 25 mg tablet 25 mg PO QAM alendronate 70 mg tablet 70 mg PO WK aspirin 81 mg capsule 81 mg PO QAM multivitamin Tablet 1 tab PO 3XWK acetaminophen [Tylenol 8 Hour] 650 mg tablet extended release 1,300 mg PO Q12H PRN (Reason: Pain) meloxicam 15 mg tablet 15 mg PO QAM Qty: 30 2RF gabapentin 100 mg capsule 200 mg PO TID Qty: 180 2RF atorvastatin 20 mg Tablet 20 mg PO HS levothyroxine 50 mcg Tablet 50 mcg PO QAM finasteride 5 mg Tablet 2.5 mg PO QAM Patient Comments: TAKES FOR HAIR LOSS biotin 5 mg Tablet 5 mg PO QAM Admission Data Admit Date/Time: 07/07/25 15:47 Attending Provider: Deejay Cruz Admit Provider: Deejay Cruz Primary Care Provider: Cindy Wayne Other Providers: Priya Santacruz; Michael Daley
--- NOTE | 2025-07-08 13:13 | Hospitalist Progress Note ---
Date of Service July 08, 2025 Assessment & Plan (1) Lumbar spondylosis: (2) Lumbar radiculopathy: (3) Spinal stenosis of lumbar region with neurogenic claudication: (4) S/P spinal surgery: Plan Patient is an 84y/o F with PMHx significant for HTN, CKD stage II-III, prediabetes, HLD, hypothyroidism, lumbar spondylosis, lumbar stenosis with neurogenic claudication and lumbar radiculopathy who is being seen in consultation for routine postoperative medical management after undergoing elective L4-L5 laminectomy performed by Dr. Cruz on 07/07/25 after failing conservative tx. #Lumbar stenosis with neurogenic claudication s/p laminectomy, POD#1 Pt feeling well postop Continue PRN analgesia, bowel reg as per primary service H/H stable postoperatively Postop leukocytosis noted --> likely 2/2 intraop corticosteroid use, low suspicion for infection Continue to monitor CBC trend while inpt PT/OT as able #CKD stage II-III Stable, baseline Cr 0.8-1.0 Continue to monitor BMP trend while inpt #HTN Somewhat soft BP this AM therefore losartan held, resume as able #HLD Continue statin Continue ASA as per primary service #Hypothyroidism Continue Synthroid #Osteoporosis Continue alendronate DVT Prophylaxis: As per primary service Disposition: D/c planning as per primary service We will continue to follow the patient with you during their hospital stay. You can [facility] a [facility] [employer]. Patient seen in collaboration with Dr. Daley. Please see addendum. I spent a total of 32 minutes coordinating, documenting, and providing care for this patient excluding time spent in the performance of separately billed services or time spent by another provider/QHP. This included personally reviewing all current laboratories and imaging studies, medical reconciliation, outpatient chart review and discussion with specialists. This chart was completed in part utilizing Speech Voice Recognition Software. Grammatical errors, random word insertions, pronoun errors, and incomplete sentences are an occasional consequence of this system due to software limitations, ambient noise, and hardware issues. Any formal questions or concerns about the content, text, or information contained within the body of this dictation should be directly addressed to the provider for clarification. Admission and Anticipated Discharge Date Admission Date: July 07, 2025 Subjective Patient seen and examined in room N386-2. Multiple family members present at bedside. Feeling well this morning, reports pain is well-controlled. Had surgical dressing changed last evening. Tolerating regular diet without issue. No BM yet postoperatively but is passing gas. Review of Systems Review of Systems: At least ten systems reviewed and negative, except as noted in the subjective section. Physical Exam Physical Exam: General: Elderly F, NAD, sitting up in bed, A&Ox3, very pleasant, multiple family members at bedside HEENT: Normocephalic, atraumatic, oropharynx moist Respiratory: Normal respiratory effort, CTAB Cardiovascular: RRR, normal peripheral pulses, no BLE edema Abdomen/GI: Active bowel sounds, soft, nontender to palpation in all quadrants Extremities/MSK: No cyanosis or clubbing, extremities motor strength intact, moves all extremities Neurologic: No overt focal deficits, CN's II-XI not formally tested but appear grossly intact bilaterally Skin: Surgical dressing on low back C/D/I Results & Data Results & Data Vital Signs (Past 12 Hours) Vital Signs Temp Pulse Pulse Resp BP Pulse Ox O2 Del Method 07/08/25 11:52 36.4 C L 60 17 179/68 H 99 Room Air 07/08/25 07:22 37.0 C 78 19 137/71 98 Room Air 07/08/25 03:00 36.4 C L 75 18 161/69 H 97 Room Air Laboratory Results Short CBC 07/08/25 Range/Units 05:55 WBC 19.53 H (4.8-10.8) K/ul Hgb 12.5 (12.0-16.0) g/dl Hct 36.0 L (37.0-47.0) % Plt Count 285 (130-400) K/uL BMP 07/08/25 05:55 Sodium 132 L Potassium 4.3 Chloride 97 L Carbon Dioxide 24 BUN 16 Creatinine 0.91 Glucose 162 H Calcium 8.8
[2025-07-08 17:46] VITALS: RESP 18
[2025-07-09] MEDS: ALENDRONATE SODIUM 70 MG TAB PO SCH (05:40)
[2025-07-09 06:31] LABS: Hematocrit (blood only) 32.7 % (37.0-47.0); Hemoglobin 11.2 g/dl (12.0-16.0); Immature Granulocytes # (auto) 0.08 K/uL (0.01-0.20); Immature Granulocytes % (auto) 0.5 %; Mean Corpuscular Hemoglobin 31.4 pg (25.0-34.0); Mean Corpuscular Volume 91.6 fL (80.0-100.0); Platelet Count 245 K/uL (130-400); RDW Standard Deviation 42.5 fL (36.4-46.3); Red Blood Count 3.57 M/uL (4.20-5.40); White Blood Count 14.75 K/ul (4.8-10.8)
[2025-07-09 07:15] LABS: Anion Gap 6.0 (3-11); Blood Urea Nitrogen 17.0 mg/dl (6-23); Calcium 8.7 mg/dl (8.6-10.3); Carbon Dioxide 28.0 mmol/L (21-32); Chloride 99.0 mmol/L (98-107); Creatinine Clr Calc Pharmacy 42.5 ml/min; Glucose 97.0 mg/dl (70-99(Fasting)); Magnesium 2.0 mg/dl (1.7-2.4); Potassium 4.6 mmol/L (3.5-5.1); Sodium 133.0 mmol/L (136-145)
--- NOTE | 2025-07-09 07:55 | Hospitalist Progress Note ---
Date of Service July 09, 2025 Assessment & Plan (1) Lumbar spondylosis: (2) Lumbar radiculopathy: (3) Spinal stenosis of lumbar region with neurogenic claudication: (4) S/P spinal surgery: (5) Acute blood loss anemia: Plan Patient is an 84y/o F with PMHx significant for HTN, CKD stage II-III, prediabetes, HLD, hypothyroidism, lumbar spondylosis, lumbar stenosis with neurogenic claudication and lumbar radiculopathy who is being seen in consultation for routine postoperative medical management after undergoing elective L4-L5 laminectomy performed by Dr. Cruz on 07/07/25 after failing conservative tx. #Lumbar stenosis with neurogenic claudication s/p laminectomy, POD#2 Pt feeling well postop Continue PRN analgesia, bowel reg as per primary service Postop leukocytosis noted - likely 2/2 intraop corticosteroid use, low suspicion for infection --> improving PT/OT as able #Acute blood loss anemia ISO expected surgical loss Likely dilutional component contributing as well No indication to transfuse at this time Continue to monitor H/H trend while inpt #CKD stage II-III Stable, baseline Cr 0.8-1.0 Continue to monitor BMP trend while inpt #HTN BP improved Resume losartan #HLD Continue statin Continue ASA as per primary service #Hypothyroidism Continue Synthroid #Osteoporosis Continue alendronate DVT Prophylaxis: As per primary service Disposition: D/c planning as per primary service --> pt states she is being d/c home today We will continue to follow the patient with you during their hospital stay. You can reach a [facility] via [employer]. Patient seen in collaboration with Dr. Daley. Please see addendum. I spent a total of 26 minutes coordinating, documenting, and providing care for this patient excluding time spent in the performance of separately billed services or time spent by another provider/QHP. This included personally reviewing all current laboratories and imaging studies, medical reconciliation, outpatient chart review and discussion with specialists. This chart was completed in part utilizing Speech Voice Recognition Software. Grammatical errors, random word insertions, pronoun errors, and incomplete sentences are an occasional consequence of this system due to software limi tations, ambient noise, and hardware issues. Any formal questions or concerns about the content, text, or information contained within the body of this dictation should be directly addressed to the provider for clarification. Admission and Anticipated Discharge Date Admission Date: July 07, 2025 Subjective Patient seen and examined in room N386-2. Had a few episodes of sharp pain at her surgical site overnight but feels this has improved. Sitting up in chair at bedside. Tolerating diet without issue. Denies any SOB or chest pain. Had BM last evening. States plan is to go home today. Review of Systems Review of Systems: At least ten systems reviewed and negative, except as noted in the subjective section. Physical Exam Physical Exam: General: Elderly F, NAD, sitting up in chair at bedside, A&Ox3, very pleasant HEENT: Normocephalic, atraumatic, oropharynx moist Respiratory: Normal respiratory effort, CTAB Cardiovascular: RRR, normal peripheral pulses, no BLE edema Abdomen/GI: Active bowel sounds, soft, nontender to palpation in all quadrants Extremities/MSK: No cyanosis or clubbing, extremities motor strength intact, moves all extremities Neurologic: No overt focal deficits, CN's II-XI not formally tested but appear grossly intact bilaterally Skin: Surgical dressing on low back C/D/I Results & Data Results & Data Vital Signs (Past 12 Hours) Vital Signs Temp Pulse Resp BP Pulse Ox O2 Del Method 07/08/25 23:32 36.4 C L 72 18 135/69 96 Room Air Laboratory Results Short CBC 07/09/25 Range/Units 06:12 WBC 14.75 H (4.8-10.8) K/ul Hgb 11.2 L (12.0-16.0) g/dl Hct 32.7 L (37.0-47.0) % Plt Count 245 (130-400) K/uL BMP 07/09/25 06:12 Sodium 133 L Potassium 4.6 Chloride 99 Carbon Dioxide 28 BUN 17 Creatinine 0.87 Glucose 97 Calcium 8.7
[2025-07-09 08:23] VITALS: BP 153/80; PULSE 68; TEMP 97.3; O2SAT 98
--- NOTE | 2025-07-09 10:54 | Orthopedic Progress Note ---
Date of Service July 09, 2025 Subjective Patient seen and examined, she notes some incisional pain but otherwise notes distinct improvement of lower extremities relative to preoperative symptoms. Incision site examined, clean dry no findings to suggest infectious process. Impression: Postoperative day 2 from lumbar decompression stable postoperative course. Plan: Patient feels she can manage at home with appropriate pain medications, will discharge to home with follow-up in 2 weeks. I discussed with her care of the operative site with beginning showers on Thursday, 2 days from now. Review of Systems All systems reviewed & are unremarkable except as noted in HPI & below. Physical Exam . Results & Data Results & Data Laboratory Results . Diagnostic Findings . PG Care Time/CCT Total # of Minutes Spent Total Time Spent with Patient: Total time spent is greater than 50% in coordination of care (as documented) at patient's floor/unit and/or counseling patient: Coding Level of Care Code 01552 Post Operative Follow-Up
--- NOTE | 2025-07-10 08:05 | Fluoroscopy Report ---
FL spine 1V any level CLINICAL HISTORY: L4-L5 LAMI COMPARISON STUDY: None FLUOROSCOPY TIME: 8 seconds FLUOROSCOPY IMAGES: 3 EXPOSURE DOSE: 4 mGy FINDINGS: Fluoroscopy was provided for lower lumbar laminectomy. IMPRESSION: Intraoperative fluoroscopy. ACT 112: Negative or not required by law. Electronically signed by: Oscar Miguel M.D. 07/10/2025 8:04 AM
== END 2025-07-09 13:57 | disposition home or self-care (01) ==
LOC: ASU 09:23 → 3N 09:23
DX: Z86.011 Personal history of benign neoplasm of the brain; M48.061 Spinal stenosis, lumbar region without neurogenic claudication; Z79.890 Hormone replacement therapy; Z88.2 Allergy status to sulfonamides; Z86.73 Personal history of transient ischemic attack (TIA), and cerebral infarction without residual deficits; E03.9 Hypothyroidism, unspecified; M48.062 Spinal stenosis, lumbar region with neurogenic claudication; M54.16 Radiculopathy, lumbar region; E78.5 Hyperlipidemia, unspecified; R32 Unspecified urinary incontinence; I12.9 Hypertensive chronic kidney disease with stage 1 through stage 4 chronic kidney disease, or unspecified chronic kidney disease; N18.31 Chronic kidney disease, stage 3a; Z79.899 Other long term (current) drug therapy; Z86.718 Personal history of other venous thrombosis and embolism; G43.909 Migraine, unspecified, not intractable, without status migrainosus; R73.03 Prediabetes; Z79.82 Long term (current) use of aspirin; M47.816 Spondylosis without myelopathy or radiculopathy, lumbar region